=== PATIENT | male | born 1985 | race Asian ===

== ENCOUNTER 2017-05-04 20:15 | Emergency (ER) | payer MEDICAID ==
[~2017-05-04] VITALS: Ht 182.9 cm; Wt 75.0 kg
[2017-05-04] MEDS ORDERED: NALOXONE 0.4 MG/ML, 1ML ONE (20:30)
[2017-05-04] MEDS ORDERED: ONDANSETRON 2MG/ML, 2ML IVPush ONE (21:00)
[2017-05-04 21:14] LABS: HEMATOCRIT 43.5 % (39.2-51.8); HEMOGLOBIN 14.9 g/dL (13.7-18.0); WHITE BLOOD COUNT 8.2 x10^3/uL (3.4-10)
[2017-05-04 21:24] LABS: BLOOD UREA NITROGEN 15 mg/dL (7-18)
[2017-05-04] MEDS ORDERED: ONDANSETRON 2MG/ML, 2ML ONE (21:50)
[2017-05-04 22:39] LABS: DAU SCREEN DISCLAIMER
[2017-05-04 23:19] VITALS: BP 112/70
== END 2017-05-05 00:17 | disposition home or self-care (01) ==
LOC: ED 22:01
DX: T40.2X1A Poisoning by other opioids, accidental (unintentional), initial encounter (principal); J95.851 Ventilator associated pneumonia; Y92.9 Unspecified place or not applicable
CPT/HCPCS: 36415; 80048; 80307; 82040; 85025; 93005; 96372; 99285; J2405; G0479

== ENCOUNTER 2018-10-09 15:46 | Emergency (ER) | payer MEDICAID, OTHER ==
[~2018-10-09] VITALS: Ht 182.9 cm; Wt 75.7 kg
[2018-10-09 15:59] VITALS: BP 126/82
--- NOTE | 2018-10-09 17:15 | NUR ---
Patient/Caregiver given discharge instructions and they have confirmed that they understand the instructions. Patient ambulatory with steady gait.
== END 2018-10-09 17:16 | disposition home or self-care (01) ==
LOC: ED 16:52
DX: N48.1 Balanitis (principal)
CPT/HCPCS: 99283

== ENCOUNTER 2019-02-03 17:21 | Emergency (ER) | payer OTHER ==
[~2019-02-03] VITALS: Ht 188 cm; Wt 72.0 kg
[2019-02-03] MEDS ORDERED: DIPH,PERTUSS(ACELL),TET VAC/PF 0.5 ML IM-VACC ONE ×2 (18:00→20:05)
--- NOTE | 2019-02-03 19:47 | NUR ---
TO ROOM 31. ORIENTED TO ROOM FOR SAFETY.
[2019-02-03 20:16] VITALS: BP 126/78
[2019-02-03] MEDS ORDERED: LIDOCAINE 1%, 10ML INFIL ONE (21:00)
[2019-02-03] MEDS ORDERED: LIDOCAINE-MPF 1%, 5ML ONE ×2 (21:02→21:57)
--- NOTE | 2019-02-03 21:04 | NUR ---
PA AT BS
[2019-02-03] MEDS ORDERED: NEOSPORIN OINT. PKT 1 PACKET ONE (21:57)
== END 2019-02-03 22:48 | disposition home or self-care (01) ==
LOC: ED 22:19
DX: S01.511A Laceration without foreign body of lip, initial encounter (principal); S02.5XXA Fracture of tooth (traumatic), initial encounter for closed fracture; S01.81XA Laceration without foreign body of other part of head, initial encounter; W01.0XXA Fall on same level from slipping, tripping and stumbling without subsequent striking against object, initial encounter; Y93.89 Activity, other specified; Y92.410 Unspecified street and highway as the place of occurrence of the external cause; Y99.8 Other external cause status
CPT/HCPCS: 12053; 70450; 70486; 90471; 90715; 99285; J3490